=== PATIENT | female | born 1985 | race Two or more races ===

== ENCOUNTER 2025-01-04 18:32 | Emergency (ER) | payer OTHER, SELFPAY ==
[2025-01-04 19:18] VITALS: BP 163/99; PULSE 104; RESP 18; TEMP 37.3; O2SAT 97; BMI 36.1
--- NOTE | 2025-01-04 19:28 | XR_ITS ---
Examination: Abdomen sonogram, Limited Date and time of exam: January 04, 2025, 1931 hours INDICATIONS: Onset right upper abdominal pain beginning 2 days ago Technique: Real-time shrestha scale transabdominal sonographic images of the upper abdomen obtained. Findings: Normal gallbladder. Normal common bile duct 0.3 cm Pancreatic head 2.7 cm Liver 19.0 cm fatty infiltration Normal hepatopedal portal venous flow Patent IVC IMPRESSION: Normal gallbladder Normal common bile duct Moderate hepatomegaly fatty infiltration
--- NOTE | 2025-01-04 19:28 | EDRME_ITS ---
Rapid Medical Screening Exam [facility] Arrival date/time: 01/04/25 18:32 39F with history of HTN, DM, and appendectomy presents to ED with 2 days of RUQ/epigastric pain and N/V, as well as fevers/chills. Chief Complaint: Abdominal Pain Vital signs: Vital Signs Temperature 99.1 F 01/04/25 19:18 Pulse Rate 104 H 01/04/25 19:18 Respiratory Rate 18 01/04/25 19:18 Blood Pressure 163/99 H 01/04/25 19:18 Pulse Oximetry (%) 97 01/04/25 19:18 Oxygen Delivery Method Room Air 01/04/25 19:18
[2025-01-04 20:41] LABS: Lactate (Lactic Acid) 1.2 mMol/L (0.4-2.0)
[2025-01-04 20:47] LABS: Basophils # (Auto) 0.1 Thou/mm3 (0.0-0.2); Basophils % (Auto) 1 % (0-2.5); Eosinophils # (Auto) 0.4 Thou/mm3 (0.0-0.5); Eosinophils % (Auto) 3 % (0-10); Hematocrit 45.4 % (36.0-46.0); Hemoglobin 14.8 g/dL (12.0-16.0); Immature Granulocytes Auto 0.05 Thou/mm3 (0.00-0.00); Lymphocytes # (Auto) 2.8 Thou/mm3 (1.0-4.8); Lymphocytes % (Auto) 24 % (10-50); Mean Corpuscular HGB Conc 32.6 g/dl (31.0-37.0); Mean Corpuscular Hemoglobin 27.2 pg (25.0-35.0); Mean Corpuscular Volume 83 fL (80-100); Monocytes # (Auto) 0.8 Thou/mm3 (0.0-0.8); Monocytes % (Auto) 7 % (0-12); Neutrophils # (Auto) 7.4 Thou/mm3 (1.8-7.7); Neutrophils % (Auto) 64 % (37-80); Nucleated Red Blood Cell # 0.00 Thou/mm3 (0.00-0.00); Nucleated Red Blood Cell % 0 /100 WBC (0); Platelet Count 391 Thou/mm3 (140-440); RDW Standard Deviation 39.5 fL (36.4-46.3); Red Blood Count 5.45 Miln/mm3 (4.00-5.20); White Blood Count 11.5 Thou/mm3 (3.6-11.0)
[2025-01-04 21:12] LABS: Alanine Aminotransferase 24 U/L (10-49); Albumin, Serum 4.9 gm/dL (3.5-5.0); Albumin/Globulin Ratio 1.9 (1.2-2.2); Alkaline Phosphatase 56 U/L (46-116); Anion Gap 11 (7-16); Aspartate Amino Transferase 21 U/L (0-34); BUN/Creatinine Ratio 20 Ratio (12-20); Bilirubin,Total 0.4 mg/dL (0.3-1.2); Blood Urea Nitrogen 12 mg/dL (9-23); Calcium 10.1 mg/dL (8.3-10.6); Calcium (Corrected) 10.1 mg/dL (8.5-10.1); Carbon Dioxide 24.3 mMol/L (20.0-31.0); Chloride 103 mMol/L (98-107); Creatinine (Component) 0.6 mg/dL (0.6-1.3); Estimated Creatinine Clearance 137.4 mL/min (>60); Globulin 2.6 gm/dL (2.3-3.5); Glucose 93 mg/dL (74-106); Osmolality,Calculated 275 (275-295); Potassium 4.3 mMol/L (3.4-5.1); Sodium 138 mMol/L (136-145); Total Protein 7.5 gm/dL (5.7-8.2); eGFR > 60 See Note
[2025-01-04 21:26] VITALS: BP 163/95; PULSE 91; RESP 18; TEMP 36.6; O2SAT 99
--- NOTE | 2025-01-04 22:04 | EDNOTE_ITS ---
ED Abdominal Pain RME/HPI General Chief Complaint: Abdominal Pain Stated complaint: Right upper abdominal quadrant pain X 2 days Arrival date/time: 01/04/25 18:32 RME / HPI RME / HPI narrative: 01/04/25 18:32 39F with history of HTN, DM, and appendectomy presents to ED with 2 days of RUQ/epigastric pain and N/V, as well as fevers/chills. DR. 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 Present nausea, no emesis, but mild abdominal distention noted. No definitive fever, although reports chills. No dysuria. PMH of diabetes, hypertension, and hypercholesterolemia. Patient is negative for alcoholism or smoking. Reports no known allergies. Related Data Previous Rx's ?Medication ?Instructions ?Recorded hydrocodone 5 mg-acetaminophen 325 1 tab PO Q8H PRN pa in #20 tabs 01/04/25 mg tablet magnesium hydroxide 400 mg/5 mL 15 ml PO BID PRN const ipation #355 01/04/25 oral suspension (Milk of Magnesia) mL promethazine 12.5 mg tablet 12.5 mg PO Q6H PRN nausea and 01/04/25 vomiting #14 tabs Allergies Allergy/AdvReac Type Severity Reaction Status Date / Time No Known Drug Allergies Allergy Verified 01/04/25 18:36 Review of Systems Review of Systems Systems Reviewed: All systems reviewed, normal except as documented Past Medical History Past Medical History CARDIAC: Positive Hypercholesterolemia and Hypertension ENDOCRINE: Positive Diabetes Mellitus Type 2 Surgical History SURGICAL: Positive Abdominal Surgery (appendectomy) Social History SMOKING STATUS: Never smoker ED Exam Narrative Physical exam: GEN. APPEARANCE: The patient is alert awake oriented X-3 in mild distress c/o RUQ abd pain, lying down comfortably, does not look ill/toxic. Patient has good eye contact. Patient is cooperative. VITALS: All vitals were reviewed and the pulse ox is 99% on room air which is normal according to my interpretation. HEENT: Normocephalic, atraumatic. Pupils are equal and reactive. Oral mucosa is moist. Patent Nares NECK: Supple, nontender, no thyromegaly, no meningismus, no JVD, no step offs CHEST: Symmetrical, atraumatic, and with equal expansion , Nontender on palpation no deformity and no crepitus. CARDIOVASCULAR: Heart regular rhythm no murmur or gallop rub or extra beats. LUNGS: Clear to auscultation bilaterally with symmetrical chest rise. No laboring tachypnea or wheezing. No intercostal subcostal retraction. No rales and no rhonchi. ABDOMEN: Soft, flat, nondistended, marked tenderness to RUQ, slight guarding no allan, no rebound tenderness. There are no abnormal masses palpated. Active and normal bowel sounds. EXTREMITIES: Nontender. No edema. No cyanosis. Patient is able to move all 4 extremities well, with full ROM and good CSM. SKIN: Warm and dry, no jaundice or rashes noted. MUSCULOSKELETAL: No lubar or midline bony tenderness. There is no CVA tenderness. No paraspinal muscle spasm or tenderness. NEURO: Patient is FARIA x 4, Cranial nerves II through XII grossly intact. There is no focal neurologic deficits noted. GCS is 15, PNS and SN[employer] PL[employer]ATOR appear grossly intact. PSYCHIATRIC: Patient is in normal mood and affect, cooperative, no SI or HI or hallucinations. Course Quality Measures none Orders Category Date Time Status US gall bladder Stat Exams 01/04/25 19:28 Completed XR abdomen flat and uprght Stat Exams 01/04/25 22:35 Completed CBC Stat Lab 01/04/25 20:26 Completed CMP [Comprehensive Metabolic Panel] Stat Lab 01/04/25 20:26 Completed Drug Screen,Urine Stat Lab 01/04/25 21:59 Completed HCG Qualitative,Urine Stat Lab 01/04/25 21:59 Completed Lactate (Lactic Acid) Stat Lab 01/04/25 20:26 Completed Lipase Stat Lab 01/04/25 20:26 Completed Procalcitonin Stat Lab 01/04/25 20:26 Completed Urinalysis, C/S if Indicated Stat Lab 01/04/25 21:59 Completed Morphine Inj Med 01/04/25 22:32 Discontinued 4 mg IVP X1 ONE Ondansetron Inj [Zofran Inj] Med 01/04/25 22:32 Discontinued 4 mg IVP X1 ONE Pantoprazole Inj [Protonix Inj] Med 01/04/25 22:35 Discontinued 40 mg IVP X1 ONE Vital Signs Vital signs: Vital Signs Temperature 99.1 F 01/04/25 19:18 Pulse Rate 104 H 01/04/25 19:18 Respiratory Rate 18 01/04/25 19:18 Blood Pressure 163/99 H 01/04/25 19:18 Pulse Oximetry (%) 97 01/04/25 19:18 Oxygen Delivery Method Room Air 01/04/25 19:18 Abdominal Pain MDM MDM Narrative MDM Narrative:: Scribe Attestation: I, Taty Tristan, am scribing for and in the presence of Dr. Vivas. Provider Notation: Although this document has been carefully reviewed, there may still be some phonetic and other typographical errors. These errors are purely grammatical due to imperfections in the software program and should not be construed in any way to? compromise the substance of the patient's medical care during this visit. 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 Present nausea, no emesis, but mild abdominal distention noted. Please see PE findings. Laboratory markings show elevated WBC of 11.5, no anemia. Serum chemistries essentially unremarkable. Lipase mildly elevated at 83. UA contaminated. Patient hydrated with saline, treated with low-dose narcotic analgesics/anti-emetics, and PPI. 2v abdomen demonstrates [id number] stool burden but no obstructive findings. Upon reevaluation, patient is resting comfortably. Gall bladder US is negative for cholecystitis and cholelithiasis. Patient is considered stable for discharge. Presentation is consistent with low- grade pancreatitis. Will also discontinue G-1 inhibitor and maintain a pure liquid diet, prescribed a laxative, narcotic analagesic, and anti-emetic. Close f/u anticipated. Diagnoses include constipation and pancreatitis. Patient data External records reviewed:: [facility] previous records (No prior ED records available for review.) Clinical information provided by:: patient Social determinants that could affect healthcare access:: none Patient has the following chronic illnesses:: None reported How is presenting disease/condition affected by chronic disease/condition?: no chronic disease Evaluation data The following diagnostics were reviewed and interpreted by me:: lab results and radiology exam(s) Lab and/or radiology exams considered but not ordered:: None Interpretation Summary: RADIOLOGY Abdomen X-Ray: FINDINGS: Moderate to large amounts of stool throughout the colon No obstruction No free air Intact osseous structures IMPRESSION: Moderate to large amounts of stool throughout the colon Gall Bladder US: Findings: Normal gallbladder. Normal common bile duct 0.3 cm Pancreatic head 2.7 cm Liver 19.0 cm fatty infiltration Normal hepatopedal portal venous flow Patent IVC IMPRESSION: Normal gallbladder Normal common bile duct Moderate hepatomegaly fatty infiltration Medications / Prescriptions Medications or Prescriptions considered but not ordered:: None Medication administrations:: Medication Administration History Discontinued Medications Morphine Sulfate (Morphine Sulf Inj 10 Mg/Ml Vial) 4 mg IVP X1 ONE Stop: 01/04/25 22:33 Last Admin: 01/04/25 23:16 Dose: 4 mg Documented By: BETTY Ondansetron HCl (Ondansetron Inj 2 Mg/Ml Inj 2 Ml) 4 mg IVP X1 ONE; Protocol Stop: 01/04/25 22:33 Last Admin: 01/04/25 23:15 Dose: 4 mg Documented By: BETTY Pantoprazole Sodium (Pantoprazole Inj 40 Mg Vial) 40 mg IVP X1 ONE Stop: 01/04/25 22:36 Last Admin: 01/04/25 23:17 Dose: 40 mg Documented By: BETTY See above if any. Consultations Consultation(s) initiated? (list below): No Diagnosis Differential diagnosis abdominal pain: abdominal pain, calculus of kidney, constipation, diverticulitis, endometriosis, gastroenteritis, pancreatitis and small bowel obstruction Most likely diagnosis given after review of the tests above:: Pancreatits, Constipation. Admission Indicated Admission indicated?: not indicated Explain why admission is indicated or not indicated:: Patient does not meet admission criteria. Admission Request Was there a request for admission?: No Disposition Plan Disposition Plan: Discharge Discharge Attestation Discharge Attestation: The patient and all family members were given an opportunity to ask questions and understood the discharge instructions. Discharge instructions specifically effects, indications for sooner follow up or return to the emergency department, and the expected course of current diagnosis. Patient condition: Stable Discharge Plan Plan Patient Disposition: HOME (Self Care) Discharge Disposition comment: Stable Prescriptions/Referrals Prescriptions/Med Rec: New hydrocodone-acetaminophen 5-325 mg tablet 1 tab PO Q8H MDD 3 tab PRN (Reason: pain) Qty: 20 0RF magnesium hydroxide [Milk of Magnesia] 400 mg/5 mL suspension 15 ml PO BID PRN (Reason: constipation) Qty: 355 0RF promethazine 12.5 mg tablet 12.5 mg PO Q6H PRN (Reason: nausea and vomiting) Qty: 14 0RF Referrals: Glenis Godinez MD [Primary Care Provider] - In 1 week Problem List Clinical Impression: Pancreatitis, Constipation Patient/Caregiver Discharge Instructions Discharge Activity: activity as tolerated Diet Instructions: Clear liquid diet x 24 to 48 hours. Advance as tolerated. Education Materials: Treating Constipation, ED Pancreatitis Additional Instructions: Clear liquid diet x 24 to 48 hours. Medication as directed. Discontinue weight loss medication. Follow-up with PMD as needed return if worsening. Print Language: Kinyarwanda Stand Alone Forms: [employer] Award Info., Work/School Release, Patient Portal Info Letter
[2025-01-04 22:10] LABS: Collection Type, Urine Clean Catch
[2025-01-04 22:19] LABS: Amphetamine/Methamp Scrn,U Negative (Negative); Barbiturate Screen,Urine Negative (Negative); Benzodiazepines Screen,Urine Negative (Negative); Benzoylecgonine Screen, Ur Negative (Negative); Fentanyl Screen,Urine Negative (Negative); Opiate Screen,Urine Negative (Negative); THC Screen,Urine Negative (Negative)
[2025-01-04 22:22] LABS: Bilirubin,Urine Negative (Negative); Blood,Urine Negative (Negative); Clarity,Urine Clear (Clear/Hazy); Color,Urine Lt-Yellow (Lt Yel-Yel); Culture Indicated,Urine Not Indicated; Glucose, Urine 4+ (Negative); HCG Qualitative,Urine Negative; Ketones,Urine 3+ (Negative); Leukocyte Esterase,Urine Negative (Negative); Nitrite,Urine Negative (Negative); PH,Urine 5.5 (5.0-7.0); Protein,Urine Negative (Neg - Trace); RBC,Urine 12 /hpf (0-3); Specific Gravity,Urine 1.040 (1.001-1.035); Squamous Epithelial Cell,Urine 10 /hpf (0-5); Urobilinogen,Urine Negative mg/dL (0.0-1.0); WBC,Urine 4 /hpf (0-5)
--- NOTE | 2025-01-04 22:35 | XR_ITS ---
Examination: Abdomen 2 views Technique one AP supine AP upright abdomen 2 views Date and time: January 04, 2025 10:45 PM INDICATIONS: Right upper abdominal pain beginning 2 days ago. FINDINGS: Moderate to large amounts of stool throughout the colon No obstruction No free air Intact osseous structures IMPRESSION: Moderate to large amounts of stool throughout the colon
[2025-01-04 22:41] LABS: Lipase 83 U/L (12-53); Procalcitonin 0.06 ng/ml (0.0-0.49)
[2025-01-04] MEDS: ONDANSETRON INJ 2 MG/ML INJ 2 ML 4 MG IVP (23:15)
[2025-01-04] MEDS: MORPHINE SULF INJ 10 MG/ML VIAL 4 MG IVP (23:16)
[2025-01-05] VITALS: BP 142/85; PULSE 86; RESP 18; TEMP 36.8; O2SAT 95
== END 2025-01-05 00:17 | disposition home or self-care (01) ==
PROVIDERS: Physician Assistant; Emergency Provider Emergency Medicine; PCP Family Medicine
DX: K85.90 Acute pancreatitis without necrosis or infection, unspecified (principal); K59.00 Constipation, unspecified; K76.0 Fatty (change of) liver, not elsewhere classified
CPT/HCPCS: 36415; 74019; 76705; 80053; 80307; 81001; 81025; 83605; 83690; 84145; 85025; 96374; 96375; 99284; J2270; J2405; J2470

== ENCOUNTER → 2025-04-27 | Outpatient (CLI) | payer BC, SELFPAY ==
[2025-04-27 09:41] LABS: Collection Type, Urine Clean Catch
[2025-04-27 10:01] LABS: Basophils # (Auto) 0.1 Thou/mm3 (0.0-0.2); Basophils % (Auto) 1 % (0-2.5); Eosinophils # (Auto) 0.3 Thou/mm3 (0.0-0.5); Eosinophils % (Auto) 4 % (0-10); Hematocrit 46.7 % (36.0-46.0); Hemoglobin 15.6 g/dL (12.0-16.0); Immature Granulocytes Auto 0.02 Thou/mm3 (0.00-0.00); Lymphocytes # (Auto) 2.0 Thou/mm3 (1.0-4.8); Lymphocytes % (Auto) 31 % (10-50); Mean Corpuscular HGB Conc 33.4 g/dl (31.0-37.0); Mean Corpuscular Hemoglobin 27.1 pg (25.0-35.0); Mean Corpuscular Volume 81 fL (80-100); Monocytes # (Auto) 0.4 Thou/mm3 (0.0-0.8); Monocytes % (Auto) 7 % (0-12); Neutrophils # (Auto) 3.8 Thou/mm3 (1.8-7.7); Neutrophils % (Auto) 58 % (37-80); Nucleated Red Blood Cell # 0.00 Thou/mm3 (0.00-0.00); Nucleated Red Blood Cell % 0 /100 WBC (0); Platelet Count 339 Thou/mm3 (140-440); RDW Standard Deviation 41.2 fL (36.4-46.3); Red Blood Count 5.76 Miln/mm3 (4.00-5.20); White Blood Count 6.5 Thou/mm3 (3.6-11.0)
[2025-04-27 10:14] LABS: Glucose Estimated Average 275 mg/dL (80-131); Hemoglobin A1C 11.2 % Hgb (4.8-6.0)
[2025-04-27 10:17] LABS: Bilirubin,Urine Negative (Negative); Blood,Urine Negative (Negative); Clarity,Urine Clear (Clear/Hazy); Color,Urine Lt-Yellow (Lt Yel-Yel); Creatinine MALB Rnd Ur 47 mg/dL (30-125); Culture Indicated,Urine Not Indicated; Glucose, Urine 4+ (Negative); Ketones,Urine 1+ (Negative); Leukocyte Esterase,Urine Negative (Negative); Microalbumin Creat Ratio 26 mg/gCrea (<30); Microalbumin, Random Urine 12 mg/L (0-300); Nitrite,Urine Negative (Negative); PH,Urine 6.0 (5.0-7.0); Protein,Urine Negative (Neg - Trace); RBC,Urine 7 /hpf (0-3); Specific Gravity,Urine 1.037 (1.001-1.035); Squamous Epithelial Cell,Urine 5 /hpf (0-5); Urobilinogen,Urine Negative mg/dL (0.0-1.0); WBC,Urine 4 /hpf (0-5)
[2025-04-27 10:26] LABS: Iron 119 mcg/dL (50-170); Percent Iron Saturation 27 % (20-55); Total Iron Binding Capacity 431 mcg/dL (250-425); Unsaturated Iron Binding 312 (225-295)
[2025-04-27 10:27] LABS: Follicle Stimulating Hormone 4.50 mIU/mL (See Note); Vitamin D 25 Hydroxy Total 28.7 ng/mL (7.3-40.2)
[2025-04-27 10:31] LABS: Alanine Aminotransferase 16 U/L (10-49); Albumin, Serum 5.0 gm/dL (3.5-5.0); Albumin/Globulin Ratio 1.8 (1.2-2.2); Alkaline Phosphatase 49 U/L (46-116); Anion Gap 10 (7-16); Aspartate Amino Transferase 16 U/L (0-34); BUN/Creatinine Ratio 13 Ratio (12-20); Bilirubin,Total 0.7 mg/dL (0.3-1.2); Blood Urea Nitrogen 9 mg/dL (9-23); Calcium 9.4 mg/dL (8.3-10.6); Calcium (Corrected) 9.4 mg/dL (8.5-10.1); Carbon Dioxide 22.5 mMol/L (20.0-31.0); Cardiac Risk Estimate 3.3 RATIO (3.7-5.6); Chloride 107 mMol/L (98-107); Cholesterol 187 mg/dL (132-200); Creatinine (Component) 0.7 mg/dL (0.6-1.3); Free T4 (Free Thyroxine) 1.35 ng/dL (0.89-1.76); Globulin 2.8 gm/dL (2.3-3.5); Glucose 158 mg/dL (74-106); HDL Cholesterol 57 mg/dL (40-60); LDL Cholesterol,Calculated 95 mg/dL (0-130); Osmolality,Calculated 279 (275-295); Potassium 3.5 mMol/L (3.4-5.1); Sodium 139 mMol/L (136-145); Thyroid Stimulating Hormone 1.58 uIU/mL (0.55-4.78); Total Protein 7.8 gm/dL (5.7-8.2); Triglycerides 173 mg/dL (30-150); eGFR > 60 See Note
[2025-04-27 10:43] LABS: Syphilis Nonreactive (Nonreactive)
[2025-04-27 14:04] LABS: Cocci Serology, IgM Positive (Negative)
[2025-04-27 14:05] LABS: Cocid Sro, CF/ID (UCD) NO CHG* See Sep Rpt
[2025-05-14 07:15] LABS: ANA Screen, IFA POSITIVE (NEGATIVE); ANA Titer 1:160 titer; DHEA Sulfate* 42 mcg/dL (23-266); Estradiol, Free 1.60 pg/mL; Estradiol, Total 66 pg/mL; Progesterone,LC/MS* 10.7 ng/mL; Testosterone, Free,Dialysis 0.9 pg/mL (0.1-6.4); Testosterone, Total, Dialysis 5 ng/dL (2-45)
== END | disposition home or self-care (01) ==
PROVIDERS: PCP Family Medicine; Referring Provider Registered Nurse; Visit Provider Registered Nurse
DX: Z00.00 Encounter for general adult medical examination without abnormal findings (principal); L65.9 Nonscarring hair loss, unspecified; E11.65 Type 2 diabetes mellitus with hyperglycemia; E78.2 Mixed hyperlipidemia
CPT/HCPCS: 36415; 80053; 80061; 81001; 82043; 82306; 82570; 82627; 82670; 82681; 83001; 83036; 83540; 83550; 84144; 84402; 84403; 84439; 84443; 85025; 86038; 86039; 86635; 86780